=== PATIENT | male | born 1975 | race Caucasian/White ===

== ENCOUNTER → 2019-01-05 | Outpatient (CLI) | payer OTHER ==
[~2019-01-05] MED LIST: CALCIUM; DIPH1TAB45 PO; KETO-22 PO; ONDA-42 PO; ONDAN4ODT PO; PNT40TEC PO; PREMARIN; SULF1TAB38 PO; SYNTHROID; VITAMINES PO
--- NOTE | 2019-01-05 17:15 | Diagnostic Imaging Report ---
INDICATION: Left foot pain. FINDINGS: Three views of the left foot show no fracture, dislocation or other acute abnormalities. IMPRESSION: Negative left foot. Dictated by: Dictated on workstation # [id number]
== END ==
LOC: RAD 16:05
PROVIDERS: ATTEND Family Medicine
DX: M79.672 Pain in left foot (principal)
CPT/HCPCS: 73630

== ENCOUNTER → 2019-12-05 | Outpatient (CLI) | payer OTHER ==
--- NOTE | 2019-12-05 10:57 | Diagnostic Imaging Report ---
Indication: Right knee injury 3 views of the right knee show no fracture, dislocation or other acute abnormalities. IMPRESSION: Negative right knee Dictated by: Dictated on workstation # [id number]
== END ==
LOC: RAD 10:20
PROVIDERS: ATTEND Family Medicine
DX: S89.91XA Unspecified injury of right lower leg, initial encounter (principal)
CPT/HCPCS: 73562

== ENCOUNTER → 2019-12-09 | Outpatient (CLI) | payer OTHER ==
--- NOTE | 2019-12-09 10:03 | Diagnostic Imaging Report ---
EXAMINATION: Magnetic resonance imaging of the right knee without intravenous contrast DATE: December 09, 2019. COMPARISON: Right knee radiograph December 05, 2019. INDICATION: 44-year-old female, fall. Right knee pain. TECHNIQUE: Multiplanar, multisequence non contrast enhanced MR imaging was accomplished. FINDINGS: MENISCI: The medial meniscus is intact. The lateral meniscus is intact. LIGAMENTS AND TENDONS: There is abnormal signal in the anterior cruciate ligament. There is abnormal contour in the region of the anterior aspect of the inferior portion of the anterior cruciate ligament. There is no discretely identified complete tear of the anterior cruciate ligament. The posterior cruciate ligament is intact. The medial collateral ligament is intact. The iliotibial band, mid third lateral capsular ligament, fibular collateral ligament, biceps femoris tendon and conjoined tendon are intact. The quadriceps tendon and patella ligament are intact. JOINT: There is approximately 50% cartilage loss and superficial irregularity involving the medial half of the lateral patellar facet cartilage and median patellar ridge. There is underlying subchondral edema which is degenerative related. There is no identified cartilage defect of the femoral trochlea or of the medial or lateral compartments. There is no knee joint effusion, prominent synovitis, or intra-articular body. BONE: There is edema-like signal in the posterior aspect of the medial tibial plateau and also in the posterior aspect of the lateral tibial plateau without identified fracture line at either location. These are consistent with areas of bone contusion. There is subcortical cystic change in the proximal tibia underlying the posterior root attachment of the medial meniscus. There is no acute fracture. There is no evidence of osteonecrosis. There is degenerative related marrow edema in the patella as mentioned above. BURSAE AND SOFT TISSUES: There is a very small slitlike Randle's cyst. There is nonspecific mild prepatellar subcutaneous edema. IMPRESSION: 1. Increased signal and abnormal contour of the anterior aspect of the inferior portion of the anterior cruciate ligament most likely reflecting anterior cruciate ligament sprain injury and/or partial tear. There is no discretely identified complete tear of the anterior cruciate ligament. Correlation with physical exam is recommended. The posterior cruciate ligament is intact. Additional ligaments and tendons are also intact. 2. Bone contusions of the posterior aspect of the medial and lateral tibial plateaus. No acute fracture. 3. No identified meniscal tear. 4. Moderate medial compartment osteoarthritis. No knee joint effusion. 5. Very small slitlike Randle's cyst. Dictated by: Dictated on workstation # [id number]
== END ==
LOC: EDSEX 12-01 08:00 → RAD 08:00
PROVIDERS: ATTEND Family Medicine
DX: S80.11XA Contusion of right lower leg, initial encounter (principal); M17.11 Unilateral primary osteoarthritis, right knee; M71.21 Synovial cyst of popliteal space [Baker], right knee; W19.XXXA Unspecified fall, initial encounter
CPT/HCPCS: 73721

== ENCOUNTER 2020-08-16 16:07 | Outpatient (RCR) | payer OTHER ==
[2020-07-24 15:35] VITALS: BP 143/89
[2020-08-02 15:25] VITALS: BP 115/93
[2020-08-02] MEDS: IRON SUCROSE 200 MG/10 ML (VENOFER) VIAL IV SCH (15:44)
[2020-08-09] MEDS: IRON SUCROSE 200 MG/10 ML (VENOFER) VIAL IV SCH (15:35)
[2020-08-09 15:38] VITALS: BP 122/94
[~2020-08-16] VITALS: Ht 157 cm; Wt 102.3 kg
[2020-08-16 16:00] VITALS: BP 136/99
[~2020-08-16 16:07] MED LIST changes: +IRON SUCROSE 200 MG/10 ML (VENOFER) VIAL IV ONE
[2020-08-16] MEDS: IRON SUCROSE 200 MG/10 ML (VENOFER) VIAL IV SCH (16:08)
== END 2020-08-17 06:00 | disposition home or self-care (01) ==
LOC: SDC 16:07
PROVIDERS: ATTEND Family Medicine
DX: D50.9 Iron deficiency anemia, unspecified (principal)
CPT/HCPCS: 96365

== ENCOUNTER → 2020-11-19 | Outpatient (CLI) | payer OTHER ==
[~2020-11-19] MED LIST changes: -IRON SUCROSE 200 MG/10 ML (VENOFER) VIAL IV ONE
== END ==
LOC: CARD 16:00
PROVIDERS: ATTEND Family Medicine
DX: R07.89 Other chest pain (principal); Z82.49 Family history of ischemic heart disease and other diseases of the circulatory system
CPT/HCPCS: 36415; 84484; 93005

== ENCOUNTER → 2021-02-13 | Outpatient (CLI) | payer OTHER | LOC: LAB 08:48 | PROVIDERS: ATTEND Family Medicine | DX: Z02.89 Encounter for other administrative examinations (principal) | CPT/HCPCS: 36415; 84146 ==